=== PATIENT | female | born 1980 | race American Indian/Alaskan Native ===

== ENCOUNTER 2020-09-07 15:13 | Emergency (ER) | payer OTHER ==
--- NOTE | 2020-09-07 15:45 | Event Note ---
ED Screening Note ED Screening Note: CP SSD This initial assessment/diagnostic orders/clinical plan/treatment(s) is/are subject to change based on patients health status, clinical progression and re- assessment by fellow clinical providers in the ED. Further treatment and workup at subsequent clinical providers discretion. Patient/guardian urged not to elope from the ED as their condition may be serious if not clinically assessed and managed. Initial orders include: EKG RETIC
[2020-09-07] MEDS ORDERED: SODIUM CHLORIDE 0.9% 1000 ML 1,000 ML IV ONE ×2 (20:35→22:35)
[2020-09-07] MEDS ORDERED: ONDANSETRON 4 MG/2 ML INJ IV ONE ×3 (20:35→23:17)
[2020-09-07] MEDS ORDERED: HYDROmorphone 1 MG/1 ML INJ IV ONE (20:35)
[2020-09-07] MEDS ORDERED: diphenhydrAMINE 50 MG/ML VIAL IV ONE ×2 (20:35→21:08)
--- NOTE | 2020-09-07 20:39 | Emergency Department Report ---
ED General Adult HPI - General Chief complaint: Sickle Cell Crisis Stated complaint: SICKLE CELLL CRISIS/CHEST PAIN Time Seen by Provider: 09/07/20 15:45 Source: patient Mode of arrival: Ambulatory Limitations: No Limitations - History of Present Illness Initial comments: Patient is 39 years old female with history of sickle cell disease. Patient presented to the ER complaining of generalized body ache, nausea and vomiting for the last 3 days. Patient stated that she has some chills but no fever. Patient also complaining of chest pain, diffuse, sharp, intermittent with no radiation. Patient denied any cough or shortness of breath. - Related Data Allergies Allergy/AdvReac Type Severity Reaction Status Date / Time ketorolac [From Toradol] Allergy Rash Verified 09/07/20 15:46 metoclopramide [From Reglan] Allergy Rash Verified 09/07/20 15:46 morphine Allergy Rash Verified 09/07/20 15:46 prochlorperazine Allergy Rash Verified 09/07/20 15:46 [From Compazine] ED Review of Systems ROS: Stated complaint: SICKLE CELLL CRISIS/CHEST PAIN Other details as noted in HPI Comment: All other systems reviewed and negative Constitutional: chills. denies: fever Respiratory: denies: cough, orthopnea, shortness of breath, SOB with exertion Cardiovascular: chest pain, palpitations Gastrointestinal: nausea, vomiting. denies: abdominal pain, diarrhea, constipation, hematemesis, melena, hematochezia Musculoskeletal: back pain, arthralgia, myalgia Neurological: denies: headache ED Past Medical Hx - Past Medical History Previous Medical History?: Yes Hx Sickle Cell Disease: Yes ED Physical Exam - General Limitations: No Limitations General appearance: alert, in no apparent distress - Head Head exam: Present: atraumatic, normocephalic, normal inspection - Eye Eye exam: Present: normal appearance, PERRL - ENT ENT exam: Present: mucous membranes dry - Neck Neck exam: Present: normal inspection, full ROM. Absent: tenderness, menin gismus - Respiratory Respiratory exam: Present: normal lung sounds bilaterally - Cardiovascular Cardiovascular Exam: Present: tachycardia - GI/Abdominal GI/Abdominal exam: Present: soft, normal bowel sounds. Absent: distended, tenderness, guarding, rebound, rigid, organomegaly, mass, bruit, pulsatile mass, hernia - Extremities Exam Extremities exam: Present: normal inspection, full ROM, normal capillary refill. Absent: tenderness - Back Exam Back exam: Present: normal inspection, full ROM. Absent: CVA tenderness (R), CVA tenderness (L) - Neurological Exam Neurological exam: Present: alert, oriented X3, CN II-XII intact, normal gait, reflexes normal. Absent: motor sensory deficit - Psychiatric Psychiatric exam: Present: normal mood - Skin Skin exam: Present: warm, intact, normal color ED Course Vital Signs 09/07/20 09/07/20 09/07/20 15:44 21:12 22:39 Temperature 98.1 F 98.8 F Pulse Rate 115 H 102 H Respiratory 22 18 18 Rate Blood Pressure 135/84 134/87 [Right] O2 Sat by Pulse 98 99 Oximetry ED Medical Decision Making - Lab Data Result diagrams: 09/07/20 21:00 09/07/20 21:00 - EKG Data -: EKG Interpreted by Pa EKG shows normal: sinus rhythm Rate: tachycardia - EKG Data Interpretation: no acute changes - Radiology Data Radiology results: report reviewed - Medical Decision Making Patient is 39 years old female with history of sickle cell disease. Patient presented to the ER complaining of generalized body ache, nausea and vomiting for the last 3 days. Patient stated that she has some chills but no fever. Patient also complaining of chest pain, diffuse, sharp, intermittent with no radiation. Patient denied any cough or shortness of breath. Labs reviewed and is unremarkable except for elevated blood glucose for which patient received normal saline and insulin. Patient reticulocyte count is 0.97 with no evidence of sickle cell crisis. No vomiting observed in the ER. Patient kept asking for specific pain medication and Benadryl. Patient initially given Dilaudid, Benadryl and Zofran. Patient refusing any other medication except for the one that she is asking for. Patient showing a drug- seeking behavior. Patient advised to follow-up with her helicopter officer for further management. Critical care attestation.: If time is entered above; I have spent that time in minutes in the direct care of this critically ill patient, excluding procedure time. ED Disposition Clinical Impression: Nausea & vomiting, Drug-seeking behavior, Acute hyperglycemia Disposition: - TO HOME OR SELFCARE Is pt being admited?: No Condition: Stable Instructions: Nausea and Vomiting, Adult, Opioid Use Disorder Referrals: PRIMARY CARE, [Primary Care Provider] - 3-5 Days
[2020-09-07 21:07] LABS: Basophils # (Auto) 0.1 K/mm3 (0.0-0.1); Basophils % (Auto) 1.2 % (0.0-1.8); Eosinophils % (Auto) 0.4 % (0.0-4.3); Hematocrit 28.5 % (30.3-42.9); Hemoglobin 9.4 gm/dl (10.1-14.3); Lymphocytes # (Auto) 2.1 K/mm3 (1.2-5.4); Lymphocytes % (Auto) 23.6 % (13.4-35.0); Mean Corpuscular HGB Conc 33 % (30-34); Mean Corpuscular Volume 76 fl (79-97); Monocytes # (Auto) 0.7 K/mm3 (0.0-0.8); Monocytes % (Auto) 8.1 % (0.0-7.3); Platelet Count 301 K/mm3 (140-440); Red Blood Count 3.77 M/mm3 (3.65-5.03); Red Cell Distribution Width 14.2 % (13.2-15.2)
[2020-09-07 21:23] LABS: HCG Qualitative,Urine Negative (Negative)
[2020-09-07 21:30] LABS: Bacteria,Urine 1+ /HPF (Negative); Bilirubin,Urine NEG (Negative); Blood,Urine LG (Negative); Color,Urine Yellow (Yellow); Mucus,Urine FEW /HPF; Urobilinogen,Urine < 2.0 mg/dL (<2.0)
[2020-09-07 21:32] LABS: Alanine Aminotransferase 7 units/L (7-56); Albumin 3.6 g/dL (3.9-5); BUN/Creatinine Ratio 13; Blood Urea Nitrogen 10 mg/dL (7-17); Hemolysis Index 18
--- NOTE | 2020-09-07 22:34 | XRay Report ---
Bone CHEST 2 VIEWS INDICATION / CLINICAL INFORMATION: Chest Pain. COMPARISON: None available. FINDINGS: SUPPORT DEVICES: Right-sided port catheter tip projects over the cavoatrial junction. HEART / MEDIASTINUM: No significant abnormality. LUNGS / PLEURA: There is linear scarring within the right lower lung. No focal airspace disease. No p neumothorax. ADDITIONAL FINDINGS: No significant additional findings. IMPRESSION: No acute cardiopulmonary abnormality. Linear scarring is seen in the right lower lung. Signer Name: Davian Tineo MD Signed: 09/07/2020 10:29 PM Workstation Name: [id number]
[2020-09-07] MEDS ORDERED: INSULIN REGULAR, HUMAN 100 UNITS/1 ML IV ONE (22:35)
[2020-09-07 22:39] VITALS: BP 134/87
== END 2020-09-07 23:35 | disposition home or self-care (01) ==
LOC: ED 15:13
DX: R11.2 Nausea with vomiting, unspecified (principal); R73.9 Hyperglycemia, unspecified; Z88.8 Allergy status to other drugs, medicaments and biological substances; Z88.6 Allergy status to analgesic agent; Z76.5 Malingerer [conscious simulation]
CPT/HCPCS: 36415; 71046; 80053; 81001; 81025; 84484; 85025; 85045; 87086; 93005; 96374; 96375; 99284; J1170; J1200; J1642; J2405; J7030; J1815